=== PATIENT | female | born 1960 | race Caucasian/White ===

== ENCOUNTER → 2016-09-18 | Day surgery (SDC) | payer BC, MEDICARE ==
[~2016-09-18] MED LIST: AMBIEN5 MG PO; AMOXICILLIN500 MG PO; ASPIR-LOW81 MG PO; COREG 25MG TAB25 MG PO; DALIRESP500 MCG PO; FERROUS SULFAT325 M2 PO; FLEXERIL 10 MG10 MG PO; FOSAMAX70 MG PO; HYDROXYZINE PAM25 MG PO; IPRAT-ALBUT 0.5-3 ML NEB; KLONOPIN TAB 00.5 MG PO; LACTINEX PACKET1 PKT PO; LEVAQUIN500 MG PO; LEVAQUIN750 MG PO; LIPITOR TAB 2020 MG PO; LORTAB 5-325 M1 EACH PO; MEDROL DOSEPAK 24 MG PO; MELOXICAM15 MG PO; MILLIPRED5 MG PO; MIRAPEX1.5 MG PO; MONTELUKAST SOD10 MG PO; NEURONTIN 400400 MG PO; NORCO 10-325 T1 EACH PO; NORCO 5-325 TA1 EACH PO; NORCO 7.5-3251 EACH PO; OXTELLAR XR150 MG PO; PAROXETINE HCL30 MG PO; PERFOROMIS20 MCG/2 M NEB; PROAIR HFA8.5 GM INH; PROTONIX40 MG PO; SPIRIVA HANDIH18 MCG INH; SPIRIVA RESPIMAT4 GM INH; SYMBICORT 160-1 INHA INH; TOLTERODINE TART2 MG PO; TRAZODONE HCL50 MG PO; VENTOLIN/PROVE0.5 ML INH; VITAMIN B-121000 MCG PO; ZESTRIL20 MG PO; ZOLPIDEM TART12.5 MG PO
== END | disposition home or self-care (01) ==
LOC: OR 11:22
PROVIDERS: Orthopaedic Surgery
PROC: 0PU43JZ Supplement Thoracic Vertebra with Synthetic Substitute, Percutaneous Approach (ICD-10-PCS; 2016-09-18)
PROC: 0PB43ZX Excision of Thoracic Vertebra, Percutaneous Approach, Diagnostic (ICD-10-PCS; 2016-09-18)
PROC: 0PS43ZZ Reposition Thoracic Vertebra, Percutaneous Approach (ICD-10-PCS; principal; 2016-09-18 14:00)
DX: S22.079A Unspecified fracture of T9-T10 vertebra, initial encounter for closed fracture (principal); M81.0 Age-related osteoporosis without current pathological fracture; Z85.828 Personal history of other malignant neoplasm of skin; E78.5 Hyperlipidemia, unspecified; J45.909 Unspecified asthma, uncomplicated; K21.9 Gastro-esophageal reflux disease without esophagitis; Z82.3 Family history of stroke; Z80.9 Family history of malignant neoplasm, unspecified; Z90.49 Acquired absence of other specified parts of digestive tract; Z90.710 Acquired absence of both cervix and uterus; Z85.820 Personal history of malignant melanoma of skin
CPT/HCPCS: 20240; 36415; 80048; J0690; J2250; J3010; J7120; Q9962

== ENCOUNTER 2016-09-26 22:40 | Emergency (ER) | payer BC, MEDICARE ==
[~2016-09-26 22:40] MED LIST changes: -AMBIEN5 MG PO; -AMOXICILLIN500 MG PO; -ASPIR-LOW81 MG PO; -COREG 25MG TAB25 MG PO; -FERROUS SULFAT325 M2 PO; -FLEXERIL 10 MG10 MG PO; -FOSAMAX70 MG PO; -IPRAT-ALBUT 0.5-3 ML NEB; -LACTINEX PACKET1 PKT PO; -LEVAQUIN500 MG PO; -LEVAQUIN750 MG PO; -LORTAB 5-325 M1 EACH PO; -MELOXICAM15 MG PO; -MILLIPRED5 MG PO; -NORCO 5-325 TA1 EACH PO; -OXTELLAR XR150 MG PO; -PERFOROMIS20 MCG/2 M NEB; -PROAIR HFA8.5 GM INH; -SPIRIVA HANDIH18 MCG INH; -SYMBICORT 160-1 INHA INH; -TRAZODONE HCL50 MG PO; -VENTOLIN/PROVE0.5 ML INH; -VITAMIN B-121000 MCG PO; -ZESTRIL20 MG PO
[2016-09-27 00:35] LABS: HEMOGLOBIN 10.4 gm/dl (12.3-15.3); RED BLOOD COUNT 3.88 M/UL (4.00-5.10)
[2016-09-27 01:07] LABS: BUN/CREATININE RATIO 12 (0-10)
[2017-03-17] MEDS ORDERED: KLONOPIN TAB 00.5 MG PO ×2 (23:01→23:03)
[2017-03-17] MEDS ORDERED: LORTAB 5-325 M1 EACH PO (23:11)
[2017-03-17] MEDS ORDERED: FOSAMAX70 MG PO (23:14)
[2017-03-17] MEDS ORDERED: OXTELLAR XR150 MG PO (23:15)
[2017-03-17] MEDS ORDERED: TRAZODONE HCL50 MG PO (23:17)
[2017-03-17] MEDS ORDERED: FLEXERIL 10 MG10 MG PO (23:20)
[2017-03-17] MEDS ORDERED: ZESTRIL20 MG PO (23:24)
[2017-03-17] MEDS ORDERED: FERROUS SULFAT325 M2 PO (23:26)
[2017-03-23] MEDS ORDERED: SYMBICORT 160-1 INHA INH (15:30)
[2017-03-23] MEDS ORDERED: MEDROL DOSEPAK 24 MG PO (15:31)
[2017-03-23] MEDS ORDERED: LEVAQUIN500 MG PO (15:32)
[2017-03-23] MEDS ORDERED: SPIRIVA HANDIH18 MCG INH (16:22)
== END 2016-09-27 07:52 ==
LOC: ER1 22:40
PROVIDERS: Specialist/Technologist Athletic Trainer
DX: S22.42XA Multiple fractures of ribs, left side, initial encounter for closed fracture (principal); S27.321A Contusion of lung, unilateral, initial encounter; J90 Pleural effusion, not elsewhere classified; I21.4 Non-ST elevation (NSTEMI) myocardial infarction; J44.9 Chronic obstructive pulmonary disease, unspecified; J45.909 Unspecified asthma, uncomplicated; I10 Essential (primary) hypertension; Z90.49 Acquired absence of other specified parts of digestive tract; Z88.2 Allergy status to sulfonamides; Z88.5 Allergy status to narcotic agent; Z79.899 Other long term (current) drug therapy; X58.XXXA Exposure to other specified factors, initial encounter
CPT/HCPCS: 36415; 71250; 80053; 82550; 82553; 83874; 84484; 85025; 93005; 94664; 96361; 96374; 99285; J1885; J2270; J2405

== ENCOUNTER 2016-10-20 18:30 | Inpatient (IN) | payer BC, MEDICARE ==
[~2016-10-20] VITALS: Ht 154.9 cm; Wt 68.0 kg
[2016-10-20 19:32] LABS: HEMOGLOBIN 10.4 gm/dl (12.3-15.3); RED BLOOD COUNT 3.9 M/UL (4.00-5.10); WHITE BLOOD COUNT 8.2 K/UL (4.5-11.0)
[2016-10-21 06:25] LABS: HEMOGLOBIN 10.2 gm/dl (12.3-15.3); RED BLOOD COUNT 3.87 M/UL (4.00-5.10)
[2016-10-21 06:27] LABS: WHITE BLOOD COUNT 5.6 K/UL (4.5-11.0)
[2016-10-21 06:57] LABS: BUN/CREATININE RATIO 13 (0-10)
[2016-10-21] MEDS ORDERED: ASPIR-LOW81 MG PO (09:19)
[2016-10-22 03:44] LABS: HEMOGLOBIN 9.2 gm/dl (12.3-15.3)
[2016-10-22 03:48] LABS: RED BLOOD COUNT 3.48 M/UL (4.00-5.10); WHITE BLOOD COUNT 9.6 K/UL (4.5-11.0)
[2016-10-22 04:04] LABS: BUN/CREATININE RATIO 12 (0-10)
[2016-10-22] MEDS ORDERED: COREG 25MG TAB25 MG PO (08:37)
[2016-10-22] MEDS ORDERED: AMBIEN5 MG PO (19:42)
[2016-10-22] MEDS ORDERED: NORCO 5-325 TA1 EACH PO (19:46)
[2016-10-22] MEDS ORDERED: PERFOROMIS20 MCG/2 M NEB (19:50)
[2016-10-22] MEDS ORDERED: IPRAT-ALBUT 0.5-3 ML NEB (19:52)
[2016-10-22] MEDS ORDERED: PROAIR HFA8.5 GM INH (23:36)
[2016-10-23 04:47] LABS: HEMOGLOBIN 8.6 gm/dl (12.3-15.3); RED BLOOD COUNT 3.24 M/UL (4.00-5.10)
[2016-10-23 05:03] LABS: BUN/CREATININE RATIO 3 (0-10)
[2016-10-23 17:18] LABS: HEMOGLOBIN 8.7 gm/dl (12.3-15.3)
[2016-10-23] MEDS ORDERED: MELOXICAM15 MG PO (17:39)
[2016-10-23] MEDS ORDERED: LORTAB 5-325 M1 EACH PO (17:43)
[2016-10-23] MEDS ORDERED: ZOLPIDEM TART12.5 MG PO (17:50)
[2016-10-23] MEDS ORDERED: VENTOLIN/PROVE0.5 ML INH (17:56)
[2016-10-23] MEDS ORDERED: SYMBICORT 160-1 INHA INH (17:57)
[2016-10-23] MEDS ORDERED: LACTINEX PACKET1 PKT PO (19:38)
[2016-10-23] MEDS ORDERED: AMOXICILLIN500 MG PO (19:39)
[2016-10-23] MEDS ORDERED: VITAMIN B-121000 MCG PO (19:51)
[2017-03-17] MEDS ORDERED: KLONOPIN TAB 00.5 MG PO ×2 (23:01→23:03)
[2017-03-17] MEDS ORDERED: LORTAB 5-325 M1 EACH PO (23:11)
[2017-03-17] MEDS ORDERED: FOSAMAX70 MG PO (23:14)
[2017-03-17] MEDS ORDERED: OXTELLAR XR150 MG PO (23:15)
[2017-03-17] MEDS ORDERED: TRAZODONE HCL50 MG PO (23:17)
[2017-03-17] MEDS ORDERED: FLEXERIL 10 MG10 MG PO (23:20)
[2017-03-17] MEDS ORDERED: ZESTRIL20 MG PO (23:24)
[2017-03-17] MEDS ORDERED: FERROUS SULFAT325 M2 PO (23:26)
[2017-03-23] MEDS ORDERED: SYMBICORT 160-1 INHA INH (15:30)
[2017-03-23] MEDS ORDERED: MEDROL DOSEPAK 24 MG PO (15:31)
[2017-03-23] MEDS ORDERED: LEVAQUIN500 MG PO (15:32)
[2017-03-23] MEDS ORDERED: SPIRIVA HANDIH18 MCG INH (16:22)
== END 2016-10-23 20:25 | disposition home or self-care (01) | DRG 394 ==
LOC: ER1 18:30 → PROG CARE 23:30 → ZEROF 23:30 → PROG CARE 10-21 11:35 → ZEROF 10-21 11:45 → PROG CARE 10-22 13:23 → M/S 10-22 18:25
PROVIDERS: Emergency Medicine; Hospitalist; ADMIT Internal Medicine
DX: K52.1 Toxic gastroenteritis and colitis (principal); E87.1 Hypo-osmolality and hyponatremia; J96.10 Chronic respiratory failure, unspecified whether with hypoxia or hypercapnia; I31.3 Pericardial effusion (noninflammatory); J90 Pleural effusion, not elsewhere classified; E86.0 Dehydration; J44.9 Chronic obstructive pulmonary disease, unspecified; E87.6 Hypokalemia; D64.9 Anemia, unspecified; E83.42 Hypomagnesemia; T36.0X5A Adverse effect of penicillins, initial encounter; G40.909 Epilepsy, unspecified, not intractable, without status epilepticus; K02.9 Dental caries, unspecified; F41.9 Anxiety disorder, unspecified; F17.200 Nicotine dependence, unspecified, uncomplicated; Z86.73 Personal history of transient ischemic attack (TIA), and cerebral infarction without residual deficits; Z79.82 Long term (current) use of aspirin; Z79.1 Long term (current) use of non-steroidal anti-inflammatories (NSAID); Z99.81 Dependence on supplemental oxygen; Z79.51 Long term (current) use of inhaled steroids; Z79.891 Long term (current) use of opiate analgesic; Z79.899 Other long term (current) drug therapy; Z88.5 Allergy status to narcotic agent; Z88.2 Allergy status to sulfonamides; Z90.710 Acquired absence of both cervix and uterus; Z90.49 Acquired absence of other specified parts of digestive tract; Z98.890 Other specified postprocedural states; Z80.9 Family history of malignant neoplasm, unspecified
CPT/HCPCS: ECHO; 36415; 71010; 74000; 80048; 80053; 82550; 82553; 82607; 82728; 82746; 83605; 83690; 83735; 83874; 84132; 84439; 84443; 84484; 85014; 85018; 85025; 85610; 85730; 86850; 86900; 86901; 87040; 89055; 93005; 93306; 94640; 94664; 96361; 96365; 96375; 99285; G0378; J0692; J1650; J2930; J3370; J7030; J7050; Q0177; Q9963

== ENCOUNTER 2016-11-17 16:10 | Inpatient (IN) | payer BC, MEDICARE ==
[~2016-11-17] VITALS: Ht 154.9 cm; Wt 68.0 kg
[~2016-11-17 16:10] MED LIST changes: +AMBIEN5 MG PO; +AMOXICILLIN500 MG PO; +ASPIR-LOW81 MG PO; +COREG 25MG TAB25 MG PO; +IPRAT-ALBUT 0.5-3 ML NEB; +LACTINEX PACKET1 PKT PO; +LORTAB 5-325 M1 EACH PO; +MELOXICAM15 MG PO; +NORCO 5-325 TA1 EACH PO; +PERFOROMIS20 MCG/2 M NEB; +PROAIR HFA8.5 GM INH; +SYMBICORT 160-1 INHA INH; +VENTOLIN/PROVE0.5 ML INH; +VITAMIN B-121000 MCG PO
[2016-11-17 17:49] LABS: HEMOGLOBIN 10.1 gm/dl (12.3-15.3); RED BLOOD COUNT 3.91 M/UL (4.00-5.10); WHITE BLOOD COUNT 20.3 K/UL (4.5-11.0)
[2016-11-17 17:58] LABS: BUN/CREATININE RATIO 8 (0-10)
[2016-11-18 05:13] LABS: HEMOGLOBIN 9.5 gm/dl (12.3-15.3); RED BLOOD COUNT 3.75 M/UL (4.00-5.10); WHITE BLOOD COUNT 18.8 K/UL (4.5-11.0)
[2016-11-18 05:22] LABS: BUN/CREATININE RATIO 10 (0-10)
[2016-11-19 04:44] LABS: HEMOGLOBIN 9.3 gm/dl (12.3-15.3); RED BLOOD COUNT 3.67 M/UL (4.00-5.10)
[2016-11-19 05:02] LABS: BUN/CREATININE RATIO 10 (0-10)
[2016-11-19] MEDS ORDERED: LEVAQUIN750 MG PO (19:41)
[2016-11-19] MEDS ORDERED: MILLIPRED5 MG PO (19:47)
[2016-11-19] MEDS ORDERED: DALIRESP500 MCG PO (19:47)
[2017-03-17] MEDS ORDERED: KLONOPIN TAB 00.5 MG PO ×2 (23:01→23:03)
[2017-03-17] MEDS ORDERED: LORTAB 5-325 M1 EACH PO (23:11)
[2017-03-17] MEDS ORDERED: FOSAMAX70 MG PO (23:14)
[2017-03-17] MEDS ORDERED: OXTELLAR XR150 MG PO (23:15)
[2017-03-17] MEDS ORDERED: TRAZODONE HCL50 MG PO (23:17)
[2017-03-17] MEDS ORDERED: FLEXERIL 10 MG10 MG PO (23:20)
[2017-03-17] MEDS ORDERED: ZESTRIL20 MG PO (23:24)
[2017-03-17] MEDS ORDERED: FERROUS SULFAT325 M2 PO (23:26)
[2017-03-23] MEDS ORDERED: SYMBICORT 160-1 INHA INH (15:30)
[2017-03-23] MEDS ORDERED: MEDROL DOSEPAK 24 MG PO (15:31)
[2017-03-23] MEDS ORDERED: LEVAQUIN500 MG PO (15:32)
[2017-03-23] MEDS ORDERED: SPIRIVA HANDIH18 MCG INH (16:22)
== END 2016-11-19 20:30 | disposition home or self-care (01) | DRG 189 ==
LOC: ER1 16:10 → MED SURG 4 19:24 → ZEROF 19:24 → MED SURG 4 22:10
PROVIDERS: Psychiatry & Neurology Neurology; Student in an Organized Health Care Education/Training Program; ADMIT Internal Medicine Infectious Disease
DX: J96.21 Acute and chronic respiratory failure with hypoxia (principal); J44.1 Chronic obstructive pulmonary disease with (acute) exacerbation; B34.9 Viral infection, unspecified; D72.828 Other elevated white blood cell count; T38.0X5A Adverse effect of glucocorticoids and synthetic analogues, initial encounter; G47.33 Obstructive sleep apnea (adult) (pediatric); J96.22 Acute and chronic respiratory failure with hypercapnia; F17.210 Nicotine dependence, cigarettes, uncomplicated; G89.29 Other chronic pain; M54.9 Dorsalgia, unspecified; E09.9 Drug or chemical induced diabetes mellitus without complications; D64.89 Other specified anemias; Z90.710 Acquired absence of both cervix and uterus; Z99.81 Dependence on supplemental oxygen; Z79.899 Other long term (current) drug therapy; Z88.5 Allergy status to narcotic agent; Z88.2 Allergy status to sulfonamides
CPT/HCPCS: 36415; 71020; 80048; 80053; 80061; 81001; 82550; 82553; 82728; 83540; 83550; 83605; 83874; 83880; 84484; 85025; 85027; 87040; 87077; 87086; 87186; 93005; 94640; 94660; 94664; 96374; 99285; J1650; J1956; J2543; J2920; J2930; J3370; J7050

== ENCOUNTER → 2021-02-20 | Outpatient (CLI) | payer BC, MEDICARE ==
[~2021-02-20] MED LIST changes: +ABILIFY5 MG PO; +AMBIEN10 MG PO; +ATIVAN 1MG TABLE1 MG PO; +ATIVAN1 MG PO; +AZITHROMYCIN250 MG PO; +BREO ELLIPTA 11 EACH INH; +CARVEDILOL6.25 MG PO; +CLARITIN10 M2 PO; +CLARITIN10 MG PO; +COMBIVENT RESPIM4 GM INH; +CRESTOR40 MG PO; +CYCLOBENZAPRINE10 MG PO; +DALIRESP 500500 MCG PO; +DELSYM30 MG/5 ML PO; +DEXAMETHASONE 44 MG PO; +DOXYCYCLINE HY100 MG PO; +FERROUS SULFAT325 M2 PO; +FLEXERIL 10 MG10 MG PO; +FOSAMAX70 MG PO; +GABAPENTIN800 MG PO; +GLUCOPHAGE500 MG PO; +HYDROXYZINE HCL25 MG PO; +IBUPROFEN400 MG PO; +K-DUR TAB 20 M20 MEQ PO; +LEVAQUIN500 MG PO; +LEVAQUIN750 MG PO; +LEVOTHYROXINE50 MCG PO; +LONHALA MA25 MCG/1 M INH; +LONHALA MA25 MCG/11 INH; +MECLIZINE HCL25 MG PO; +MEDROL4 MG PO; +MILLIPRED5 MG PO; +NORVASC 5 MG TAB5 MG PO; +OMNICEF 300 MG300 MG PO; +OXTELLAR XR150 MG PO; +POTASSIUM CHLO10 MEQ PO; +PREDNISONE 10 M10 MG PO; +PREDNISONE 50 M50 MG PO; +PREDNISONE10 MG PO; +PREDNISONE20 MG PO; +PREDNISONE50 MG PO; +SPIRIVA HANDIH18 MCG INH; +TESSALON PERLE100 MG PO; +TRAZODONE HCL100 MG PO; +TRELEGY ELLIPT1 EACH INH; +VENTOLIN HFA 66.7 GM INH; +VISTARIL 25 MG25 MG PO; +VOLTAREN EC 7575 MG PO; +ZANAFLEX4 M1 PO; +ZESTRIL20 MG PO; +ZITHROMAX250 MG PO; +ZOFRAN ODT 4 MG4 MG PO; +ZOFRAN ODT4 MG PO; +ZOFRAN4 MG PO
== END ==
LOC: KOH-I 15:02
DX: M79.672 Pain in left foot (principal); M79.671 Pain in right foot
CPT/HCPCS: 73630

== ENCOUNTER 2021-07-06 22:25 | Emergency (ER) | payer BC, MEDICARE ==
[2021-07-06 22:47] LABS: HEMOGLOBIN 14.2 gm/dl (12.3-15.3); RED BLOOD COUNT 4.74 M/UL (4.00-5.10)
[2021-07-06 22:50] LABS: WHITE BLOOD COUNT 32.2 K/UL (4.5-11.0)
[2021-07-06 23:39] LABS: BUN/CREATININE RATIO 7 (0-10)
[2021-07-07] MEDS ORDERED: OMNICEF 300 MG300 MG PO (04:18)
[2021-07-07] MEDS ORDERED: ZOFRAN4 MG PO (04:18)
[2021-07-07] MEDS ORDERED: ZITHROMAX250 MG PO (04:18)
== END 2021-07-07 04:40 | disposition home or self-care (01) ==
LOC: ER1 22:25
PROVIDERS: Physician Assistant Medical
DX: J44.1 Chronic obstructive pulmonary disease with (acute) exacerbation (principal); Z20.822 Contact with and (suspected) exposure to COVID-19; I25.10 Atherosclerotic heart disease of native coronary artery without angina pectoris; F17.210 Nicotine dependence, cigarettes, uncomplicated; Z90.710 Acquired absence of both cervix and uterus; D72.829 Elevated white blood cell count, unspecified
CPT/HCPCS: 36600; 71045; 80053; 81001; 82550; 82553; 82803; 83605; 83874; 83880; 84484; 85025; 87040; 93005; 94664; 94760; 96374; 96375; 99285; J2405; Q9967; U0002

== ENCOUNTER 2022-01-12 16:50 | Emergency (ER) | payer BC, MEDICARE ==
[2022-01-12 18:24] LABS: HEMOGLOBIN 14.3 gm/dl (12.3-15.3); RED BLOOD COUNT 4.36 M/UL (4.00-5.10); WHITE BLOOD COUNT 10.5 K/UL (4.5-11.0)
[2022-01-12 20:01] LABS: BUN/CREATININE RATIO 9 (0-10)
== END 2022-01-13 00:45 | disposition home or self-care (01) ==
LOC: ER1 16:50
DX: R51.9 Headache, unspecified (principal); I10 Essential (primary) hypertension; F17.210 Nicotine dependence, cigarettes, uncomplicated; J44.9 Chronic obstructive pulmonary disease, unspecified; Z86.79 Personal history of other diseases of the circulatory system
CPT/HCPCS: 70450; 70496; 71045; 80053; 82550; 82553; 83880; 84484; 85025; 85610; 85730; 93005; 96374; 96375; 96376; 99284; J1100; J1200; J1885; J2405; Q9967

== ENCOUNTER → 2022-02-04 | Outpatient (CLI) | payer BC, MEDICARE | LOC: LAB 11:10 | DX: Z20.822 Contact with and (suspected) exposure to COVID-19 (principal) | CPT/HCPCS: U0002 ==

== ENCOUNTER 2022-02-19 19:22 | Emergency (ER) | payer BC, MEDICARE ==
[2022-02-19 20:30] LABS: HEMOGLOBIN 14.9 gm/dl (12.3-15.3); RED BLOOD COUNT 4.55 M/UL (4.00-5.10); WHITE BLOOD COUNT 21.4 K/UL (4.5-11.0)
[2022-02-19 20:58] LABS: BUN/CREATININE RATIO 11 (0-10)
[2022-02-19] MEDS ORDERED: HYDROCODON-ACE1 EAC4 PO (23:17)
[2022-02-19] MEDS ORDERED: DOXYCYCLINE MO100 MG PO (23:17)
[2022-02-20] MEDS ORDERED: HYDROCODON-ACE1 EAC4 PO (00:22)
== END 2022-02-20 01:40 | disposition home or self-care (01) ==
LOC: ER1 19:22
PROVIDERS: Emergency Medicine
DX: L03.115 Cellulitis of right lower limb (principal); F17.210 Nicotine dependence, cigarettes, uncomplicated; Z88.1 Allergy status to other antibiotic agents
CPT/HCPCS: 73610; 73630; 80053; 85025; 85652; 86140; 96374; 99283; J3370; J7030

== ENCOUNTER → 2022-03-08 | Outpatient (CLI) | payer BC, MEDICARE ==
[~2022-03-08] MED LIST changes: +DOXYCYCLINE MO100 MG PO; +HYDROCODON-ACE1 EAC4 PO
== END ==
LOC: LAB 10:07
DX: Z20.822 Contact with and (suspected) exposure to COVID-19 (principal); I67.1 Cerebral aneurysm, nonruptured
CPT/HCPCS: U0002